=== PATIENT | male | born 1990 | race African-American/Black ===

== ENCOUNTER 2018-05-27 22:46 | Emergency (ER) | payer SELFPAY ==
[2018-05-27] MEDS ORDERED: AZITHROMYCIN 250 MG TABLET PO ONE (22:56)
[2018-05-27 22:58] VITALS: BP 142/108
--- NOTE | 2018-05-27 23:00 | ED Physician Documentation ---
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 pt presents to the ED via POV c/o productive cough x 2 days. pt reports he is coughing up specks of blood. Pt requests work note. denies fever, chills, malaise or other symptoms. pt denies current chest pain, dyspnea, syncope/near syncope, headache, dizziness, visual disturbances, n/v/d, fever/chills, rash, sick contacts, dysuria, trauma. melena or hematochezia, bleeding or easy bruising, change in bowel or bladder function. anxiety or depression. ROS Negative unless otherwise specified. - ROS CONST: no problems - PAST HX Past History: none Surgeries/Procedures: other (Bilateral Knees ) Allergies/Adverse Reactions: Allergies Allergy/AdvReac Type Severity Reaction Status Date / Time No Known Allergies Allergy Unverified 05/06/18 00:15 Home Medications: Ambulatory Orders Medication Instructions Recorded NK 05/06/18 - SOCIAL HX Smoking History: less than 1 pack/day Alcohol Use: occasionally Drug Use: none - FAMILY HX Family History: No - VITAL SIGNS Vital Signs: Vital Signs Temp Pulse Resp BP Pulse Ox 122/76 05/06/18 00:25 - REVIEWED ASSESSMENTS Nursing Assessment Reviewed: Yes Vitals Reviewed: Yes General Adult Physical Exam - PHYSICAL EXAM GENERAL APPEARANCE: no distress EENT: eye inspection normal, ENT inspection normal, pharynx normal, no signs of dehydration, RAIN, no nystagmus, TM's nml NECK: normal inspection, thyroid normal. No: lymphadenopathy RESPIRATORY: no resp distress, breath sounds normal, other (chest tender with palpation). No: wheezes, rales, rhonchi CVS: reg rate & rhythm, heart sounds normal, equal pulses, no murmur, no gallop, PMI nml, no JVD, no friction rub, 24 ABDOMEN: soft, no organomegaly, normal bowel sounds, no abdominal bruit, no distension BACK: normal inspection, no CVA tenderness SKIN: normal color, warm/dry, NR, INT, PAL, DR EXTREMITIES: non-tender, normal range of motion, no evidence of injury, no edema, J, [employer] NEURO: oriented X3, motor nml, sensation nml, mood/affect nml Discharge Clincal Impression: Bronchitis Referrals: Primary Doctor,No [Primary Care Provider] - 2 Days Additional Instructions: zithromax 250 mg once daily x 4 days. Keeps working days 6-10. Rest. Increase fluids Follow up with primary care next week. seek medical care immediately if difficulty breathing, feeling faint or fainting, increased rash, chest pain, shortness of breath, or fever not controlled by tylenol/motrin or any concern. PLEASE UNDERSTAND THAT THIS IS AN EMERGENCY EVALUATION FOR YOUR COMPLAINT AND BY NATURE IS LIMITED AND NOT A SUBSTITUTE FOR ONGOING MEDICAL CARE. EVEN THOUGH TEST RESULTS AND TREATMENT PLAN WERE EXPLAINED THERE MAY BE A NEED FOR ADDITIONAL TESTING TO FULLY DETERMINE THE EXTENT OF YOUR ILLNESS/INJURY/OR CONCERN SO YOU SHOULD CONTACT AND OR ESTABLISH WITH A PRIMARY CARE PROVIDER (OR REFERRAL DOCTOR IF APPLICABLE) FOR AN APPOINTMENT SOON POSSIBLE. Condition: Good Disposition: 01 HOME, SELF-CARE Decision to Admit: NO Date of Decison to Admit: 05/27/18 Decision Time: 23:00
== END 2018-05-27 23:05 | disposition home or self-care (01) ==
LOC: ED 22:46
DX: J40 Bronchitis, not specified as acute or chronic (principal); Z72.0 Tobacco use
CPT/HCPCS: 99282